=== PATIENT | male | born 1945 | race Caucasian/White ===

== ENCOUNTER 2017-06-26 19:40 | Emergency (ER) | payer OTHER, MEDICARE ==
[~2017-06-26] VITALS: Ht 172.7 cm; Wt 72.6 kg
[2017-06-26 20:01] VITALS: BP 195/109
[2017-06-26] MEDS ORDERED: Lidocaine 2% 20mg/ml/Epi 0.005mg/ml 20ml vial INJ ONE (20:30)
[2017-06-26] MEDS ORDERED: ONDANSETRON ODT4 MG ORAL (21:23)
[2017-06-26] MEDS ORDERED: TRAMADOL HCL50 MG ORAL (21:23)
--- NOTE | 2017-06-26 22:54 | Emergency Room Report ---
History of Present Illness General Chief Complaint: Nosebleed Present Illness HPI BCC removal at 11AM this morning at dermatology office in [place]. Pt is taking both plavix and aspirin with last dose taken this morning. Bleeding has not stopped since then even with continuous pressure. (JOSS ROMEO P.ASilas) Allergies: Coded Allergies: No Known Allergies (Unverified , 06/26/17) Nursing Documentation-PMH Hx Hypertension: Yes Hx Cancer: Yes - skin cancer (JOSS [email or web address].ASilas) Physical Exam Vital Signs Date Time Temp Pulse Resp B/P (MAP) Pulse Ox O2 Delivery O2 Flow Rate FiO2 06/26/17 19:44 97.3 64 18 195/109 98 Room Air (JOSS ROMEO P.ASilas) Medical Decision Making PA Attestation Dr. Reis is my supervising physician. Patient management was discussed with my supervising physician (JOSS ROMEO) Diagnostic Impression: Primary Impression: Nasal bleeding Additional Impression: Post-op bleeding Qualified Codes: L76.21 - Postprocedural hemorrhage of skin and subcutaneous tissue following a dermatologic procedure ER Course Patient signed out to me. He was seen earlier for complication of bleeding from his skin excision for basal carcinoma. Surgicel and pressure dressing was not successful. He still continued to ooze blood. Patient is taking aspirin and Plavix. When I did look at the wound he still oozing blood. I injected with a lidocane with 1% epinephrine. I also placed 2 6-0 Prolene suture. This slowed down the bleeding. IV Surgicel and a pressure dressing was placed. He still has slight wheezing so I place a nasal clamp for direct pressure. This seemed to help. Patient tolerated procedure without any problem. Discharge home. He is scheduled to see his DrSilas tomorrow. (AUDREY FROST M.D.) Last Vital Signs Date Time Temp Pulse Resp B/P (MAP) Pulse Ox O2 Delivery O2 Flow Rate FiO2 06/26/17 21:35 97.3 64 18 194/93 98 Room Air Status: improved (JOSS ROMEO P.A.) Disposition: HOME, SELF-CARE Condition: Improved Scripts Ondansetron Odt* (ZOFRAN ODT*) 4 Mg Tab.rapdis 4 MG ORAL EVERY 6 HOURS, #15 TAB 0 Refills Prov: JOSS ROMEO 06/26/17 Tramadol Hcl* (ULTRAM*) 50 Mg Tablet 50 MG ORAL Q6H Y for For Pain, #10 TAB 0 Refills Prov: JOSS ROMEO. 06/26/17 Patient Instructions: Nosebleed Additional Instructions: I discussed my findings with the patient. All questions and concerns have been answered. Treatment and medication compliance have been addressed. I advised the patient that they need to follow up with primary doctor as soon as possible. Return to ED if symptoms worsen, new symptoms arise, or if needed for any reason. Patient verbalized understanding of discharge instructions. The patient will follow up with nonprofit manager at 11AM on 06/27/17 as discussed. Please return if bleeding continues or worsens. JOSS ROMEO Jun 26, 2017 22:54 AUDREY FROST M.D. Jun 26, 2017 23:52
[2017-06-27] VITALS: BP 163/91
[2017-06-27 01:40] VITALS: BP 180/97
[2017-06-27 01:45] VITALS: BP 180/97
== END 2017-06-26 21:35 | disposition home or self-care (01) ==
LOC: EMR 20:12
DX: R04.0 Epistaxis (principal); L76.21 Postprocedural hemorrhage of skin and subcutaneous tissue following a dermatologic procedure; Y83.8 Other surgical procedures as the cause of abnormal reaction of the patient, or of later complication, without mention of misadventure at the time of the procedure; I10 Essential (primary) hypertension; Z85.828 Personal history of other malignant neoplasm of skin; Z79.02 Long term (current) use of antithrombotics/antiplatelets; Z79.82 Long term (current) use of aspirin
CPT/HCPCS: 64450; 99284